=== PATIENT | male | born 1985 | race African-American/Black ===

== ENCOUNTER 2021-12-25 19:25 | Emergency (ER) | payer MEDICAID ==
[~2021-12-25] VITALS: Ht 185.4 cm; Wt 118.0 kg
[2021-12-25] MEDS ORDERED: IBUP-2028 MT (21:11)
[2021-12-25] MEDS ORDERED: IBUPROFEN 400MG TABLET PO ONE (21:15)
[2021-12-25] MEDS ORDERED: TETANUS, DIPHTHERIA, PERTUSSIS VAC/PF 0.5ML (>10YR OLD) IM ONE (21:15)
[2021-12-25 21:25] VITALS: BP 132/70
== END 2021-12-25 21:30 | disposition home or self-care (01) ==
LOC: ER 19:44
DX: S61.231A Puncture wound without foreign body of left index finger without damage to nail, initial encounter (principal); W22.8XXA Striking against or struck by other objects, initial encounter; Y93.89 Activity, other specified; Y92.89 Other specified places as the place of occurrence of the external cause; Y99.8 Other external cause status
CPT/HCPCS: 90471; 90715; 99283